=== PATIENT | female | born 1960 | race Two or more races ===

== ENCOUNTER 2017-04-05 13:37 | Inpatient (IN) | payer MEDICAID ==
[~2017-04-05] VITALS: Ht 160 cm; Wt 77.2 kg
[2017-04-05 16:53] LABS: BASOPHIL % 0.8 % (0-2); PLATELET COUNT 231 x10^3mcL (130-400); RED CELL DISTRIBUTION WIDTH 13.8 % (11.5-14.5)
[2017-04-05 16:59] LABS: CARBON DIOXIDE 28.7 mmol/L (21-32); CHLORIDE SERUM 107 mmol/L (98-107); CREATININE SERUM 0.7 mg/dL (0.6-1.0); GFR1 > 60 mL/min; GLUCOSE SERUM 92 mg/dL (74-106); POTASSIUM SERUM 3.7 mmol/L (3.5-5.1); SODIUM SERUM 143 mmol/L (136-145)
[2017-04-05 17:04] LABS: ALBUMIN 3.9 g/dL (3.4-5.0); ALKALINE PHOSPHATASE 61 U/L (46-116); ALT/SGPT 86 U/L (14-59); AST/SGOT 37 U/L (15-37); BILIRUBIN TOTAL 0.45 mg/dL (0.20-1.00); TOTAL PROTEIN, SERUM 7.6 g/dL (6.4-8.2)
[2017-04-05] MEDS ORDERED: NORCO1 TA2 PO (19:17)
[2017-04-05] MEDS ORDERED: MIRTAZAPINE30 M2 PO (19:18)
[2017-04-05] MEDS ORDERED: ELMIRON100 MG PO (19:26)
[2017-04-05 20:28] LABS: MAGNESIUM 2.2 mg/dL (1.8-2.4)
[2017-04-05 20:34] LABS: T3 TOTAL 1.33 ng/mL
[2017-04-05 20:57] LABS: FREE T4 0.87 ng/dL (0.76-1.46); T4(THYROXINE) 8.2 ug/dL (4.7-13.3)
[2017-04-05 21:03] VITALS: BP 147/83
[2017-04-05] MEDS ORDERED: GOOD SENSE OMEP20 MG PO (22:12)
[2017-04-05 22:46] LABS: microscopic required? NO
[2017-04-05 23:00] LABS: urine erythrocyte NEGATIVE (NEGATIVE)
[2017-04-05 23:06] LABS: AMPHETAMINE QUAL UR NONE DETECTED (NEG <=1000)
[2017-04-06 06:55] VITALS: BP 111/75
[2017-04-06 14:15] VITALS: BP 119/70
[2017-04-06 17:58] VITALS: BP 133/87
[2017-04-06 21:43] VITALS: BP 132/64
[2017-04-07 05:52] VITALS: BP 115/60
[2017-04-07 06:29] LABS: CALCIUM 8.4 mg/dL (8.5-10.1); CARBON DIOXIDE 26.5 mmol/L (21-32); CHLORIDE SERUM 111 mmol/L (98-107); CREATININE SERUM 0.7 mg/dL (0.6-1.0); GFR1 > 60 mL/min; GLUCOSE SERUM 126 mg/dL (74-106); MAGNESIUM 2.2 mg/dL (1.8-2.4); PHOSPHOROUS 3.3 mg/dL (2.5-4.9); POTASSIUM SERUM 3.6 mmol/L (3.5-5.1); SODIUM SERUM 146 mmol/L (136-145)
[2017-04-07 06:32] LABS: BASOPHIL % 0.3 % (0-2); PLATELET COUNT 205 x10^3mcL (130-400); RED CELL DISTRIBUTION WIDTH 13.4 % (11.5-14.5)
[2017-04-07 10:12] VITALS: BP 124/78
[2017-04-07 13:43] VITALS: BP 125/62
[2017-04-07 16:53] VITALS: BP 135/86
[2017-04-07 21:47] VITALS: BP 124/61
[2017-04-08 05:24] VITALS: BP 128/80
[2017-04-08 10:00] VITALS: BP 104/59
[2017-04-08 10:39] VITALS: BP 128/80
[2017-04-08] MEDS ORDERED: MECLIZINE HCL12.5 MG PO (13:52)
== END 2017-04-08 17:55 | disposition home or self-care (01) | DRG 48 ==
LOC: ED 13:37 → DU 19:43
PROVIDERS: Emergency Medicine; Family Medicine; ADMIT Family Medicine
DX: G51.0 Bell's palsy (principal); N32.81 Overactive bladder; K21.9 Gastro-esophageal reflux disease without esophagitis; F41.9 Anxiety disorder, unspecified; M79.7 Fibromyalgia; R74.0 Nonspecific elevation of levels of transaminase and lactic acid dehydrogenase [LDH]; E78.5 Hyperlipidemia, unspecified; R42 Dizziness and giddiness; M19.90 Unspecified osteoarthritis, unspecified site; E66.9 Obesity, unspecified; Z68.30 Body mass index [BMI] 30.0-30.9, adult; Z87.891 Personal history of nicotine dependence
CPT/HCPCS: 83880; 84439; J1170; J1885; J2405; J2920; J7030; Q0092; Q0163

== ENCOUNTER 2018-10-06 13:54 | Emergency (ER) | payer OTHER, MEDICAID ==
[~2018-10-06] VITALS: Ht 160 cm; Wt 70.8 kg
[~2018-10-06 13:54] MED LIST: ELMIRON100 MG PO; GOOD SENSE OMEP20 MG PO; MECLIZINE HCL12.5 MG PO; MIRTAZAPINE30 M2 PO; NORCO1 TA2 PO
[2018-10-06 14:04] VITALS: Ht 160 cm; Wt 70.8 kg
[2018-10-06 15:47] LABS: UA SPECIFIC GRAVITY <=1.005 (1.005-1.035); microscopic required? YES; urine erythrocyte TRACE (NEGATIVE)
[2018-10-06 15:50] LABS: BASOPHIL % 0.5 % (0-2); PLATELET COUNT 212 x10^3mcL (130-400); RED CELL DISTRIBUTION WIDTH 13.1 % (11.5-14.5)
[2018-10-06 15:57] LABS: CALCIUM 9.1 mg/dL (8.5-10.1); CARBON DIOXIDE 26.9 mmol/L (21-32); CHLORIDE SERUM 105 mmol/L (98-107); CREATININE SERUM 0.7 mg/dL (0.6-1.0); GFR1 > 60 mL/min; GLUCOSE SERUM 76 mg/dL (74-106); POTASSIUM SERUM 4.1 mmol/L (3.5-5.1); SODIUM SERUM 143 mmol/L (136-145)
[2018-10-06 16:04] LABS: ALBUMIN 3.8 g/dL (3.4-5.0); ALKALINE PHOSPHATASE 69 U/L (46-116); ALT/SGPT 17 U/L (14-59); AMYLASE 68 U/L (25-115); AST/SGOT 20 U/L (15-37); BILIRUBIN TOTAL 0.68 mg/dL (0.20-1.00); LIPASE 131 IU/L (73-393); TOTAL PROTEIN, SERUM 7.5 g/dL (6.4-8.2)
[2018-10-06 17:07] VITALS: BP 132/80
== END 2018-10-06 17:07 | disposition home or self-care (01) ==
LOC: ED 13:54
PROVIDERS: Emergency Medicine
DX: N39.0 Urinary tract infection, site not specified (principal); M79.7 Fibromyalgia; F41.9 Anxiety disorder, unspecified; Z88.5 Allergy status to narcotic agent
CPT/HCPCS: J0696; J1885; J7030

== ENCOUNTER 2019-05-03 15:51 | Emergency (ER) | payer OTHER, MEDICAID ==
[~2019-05-03] VITALS: Ht 165.1 cm; Wt 70.3 kg
[2019-05-03 15:53] VITALS: Ht 165.1 cm; Wt 70.3 kg
[2019-05-03 19:47] VITALS: BP 140/78
== END 2019-05-03 19:47 | disposition home or self-care (01) ==
LOC: ED 15:51
DX: S30.0XXA Contusion of lower back and pelvis, initial encounter (principal); M79.7 Fibromyalgia; F41.9 Anxiety disorder, unspecified; M19.90 Unspecified osteoarthritis, unspecified site; Z88.5 Allergy status to narcotic agent; W18.39XA Other fall on same level, initial encounter; Y93.89 Activity, other specified; Y92.89 Other specified places as the place of occurrence of the external cause; Y99.8 Other external cause status
CPT/HCPCS: J1885

== ENCOUNTER 2019-10-27 21:53 | Emergency (ER) | payer OTHER, MEDICAID ==
[~2019-10-27] VITALS: Ht 160 cm; Wt 67.6 kg
[2019-10-27 22:00] VITALS: Ht 160 cm; Wt 67.6 kg
[2019-10-27 23:41] LABS: BASOPHIL % 0.8 % (0-2); PLATELET COUNT 232 x10^3mcL (130-400); RED CELL DISTRIBUTION WIDTH 13.2 % (11.5-14.5)
[2019-10-27 23:53] LABS: AMPHETAMINE QUAL UR NONE DETECTED (See below)
[2019-10-28 00:03] LABS: CALCIUM 8.6 mg/dL (8.5-10.1); CARBON DIOXIDE 27.4 mmol/L (21-32); CHLORIDE SERUM 104 mmol/L (98-107); CREATININE SERUM 0.8 mg/dL (0.6-1.0); GFR1 > 60 mL/min; GLUCOSE SERUM 89 mg/dL (74-106); POTASSIUM SERUM 3.5 mmol/L (3.5-5.1); SODIUM SERUM 140 mmol/L (136-145)
[2019-10-28 00:17] LABS: ALBUMIN 3.8 g/dL (3.4-5.0); ALKALINE PHOSPHATASE 73 U/L (46-116); ALT/SGPT 30 U/L (14-59); AST/SGOT 19 U/L (15-37); BILIRUBIN TOTAL 0.8 mg/dL (0.20-1.00); LIPASE 253 IU/L (73-393); TOTAL PROTEIN, SERUM 7.3 g/dL (6.4-8.2)
[2019-10-28 01:50] VITALS: BP 118/80
== END 2019-10-28 01:50 | disposition home or self-care (01) ==
LOC: ED 21:53
PROVIDERS: Emergency Medicine
DX: R10.816 Epigastric abdominal tenderness (principal); R11.2 Nausea with vomiting, unspecified; M79.7 Fibromyalgia; Z88.5 Allergy status to narcotic agent; M19.90 Unspecified osteoarthritis, unspecified site
CPT/HCPCS: 36415; Q0092

== ENCOUNTER 2020-02-10 15:26 | Emergency (ER) | payer OTHER, MEDICAID ==
[~2020-02-10] VITALS: Ht 162.6 cm; Wt 68.0 kg
[2020-02-10 16:12] VITALS: Ht 162.6 cm; Wt 68.0 kg
[2020-02-10 18:19] LABS: CALCIUM 9.3 mg/dL (8.5-10.1); CARBON DIOXIDE 31.3 mmol/L (21-32); CREATININE SERUM 1.3 mg/dL (0.6-1.0); POTASSIUM SERUM 4.3 mmol/L (3.5-5.1)
[2020-02-10 18:29] LABS: BILIRUBIN TOTAL 0.54 mg/dL (0.20-1.00); TOTAL PROTEIN, SERUM 7.7 g/dL (6.4-8.2)
[2020-02-10 20:35] VITALS: BP 122/63
== END 2020-02-10 20:35 | disposition home or self-care (01) ==
LOC: ED 15:26
PROVIDERS: Specialist
DX: N39.0 Urinary tract infection, site not specified (principal); M79.7 Fibromyalgia; M19.90 Unspecified osteoarthritis, unspecified site; Z88.5 Allergy status to narcotic agent

== ENCOUNTER 2020-07-07 18:46 | Emergency (ER) | payer OTHER, MEDICAID ==
[~2020-07-07] VITALS: Ht 162.6 cm; Wt 68.5 kg
[2020-07-07 19:06] VITALS: Ht 162.6 cm; Wt 68.5 kg
[2020-07-07 19:39] LABS: UA SPECIFIC GRAVITY 1.025 (1.005-1.035); microscopic required? YES; urine erythrocyte NEGATIVE (NEGATIVE)
[2020-07-07 20:56] VITALS: BP 124/78
== END 2020-07-07 20:56 | disposition home or self-care (01) ==
LOC: ED 18:46
PROVIDERS: Emergency Medicine
DX: N39.0 Urinary tract infection, site not specified (principal); M79.7 Fibromyalgia; Z88.5 Allergy status to narcotic agent
CPT/HCPCS: J0696; J1885

== ENCOUNTER 2020-10-24 18:06 | Emergency (ER) | payer OTHER, MEDICAID ==
[~2020-10-24] VITALS: Ht 152.4 cm; Wt 68.9 kg
[2020-10-24 18:21] VITALS: BP 135/84; Ht 152.4 cm; Wt 68.9 kg
[2020-10-24] MEDS ORDERED: KEF500 PO ×2 (18:52→19:29)
[2020-10-24] MEDS ORDERED: MOT800 PO ×2 (18:52→19:29)
[2020-10-24] MEDS ORDERED: PYRIDIUM200 M1 PO (18:52)
== END 2020-10-24 19:00 | disposition home or self-care (01) ==
LOC: ED 18:06
DX: N39.0 Urinary tract infection, site not specified (principal); M19.90 Unspecified osteoarthritis, unspecified site; Z88.5 Allergy status to narcotic agent
CPT/HCPCS: J0696